=== PATIENT | female | born 1995 | race Caucasian/White ===

== ENCOUNTER 2018-02-11 23:14 | Emergency (ER) | payer OTHER ==
[2018-02-11 23:19] VITALS: BP 122/81; PULSE 87; RESP 16; TEMP 98.4
[2018-02-12] MEDS ORDERED: IBUPROFEN 600 MG TAB PO STA (00:15)
[2018-02-12] MEDS ORDERED: ACETAMINOPHEN TAB 500 MG TAB PO STA (00:15)
[2018-02-12] MEDS ORDERED: predniSONE 50 MG TAB PO STA (00:16)
--- NOTE | 2018-02-12 00:18 | ED ---
ENT HPI - General Chief complaint: ENT Stated complaint: eye problem Time Seen by Provider: 02/11/18 23:22 Source: patient, RN notes reviewed, old records reviewed Mode of arrival: ambulatory Limitations: no limitations - History of Present Illness Initial comments: This patient is a 23 year old female with L eye irritation, swelling for a week. She was started on erythromycin ointment 2 days ago by [facility] and has some relief. She state that today she has fullness in L ear and cannot hear from it. She also complains of pain and tenderness over the L ethmoid and maxillary sinus. She reports she left work. She reports that she had a bloody tear discharge from her L eye. Denies any other symptoms. - Related Data Previous Rx's Medication Instructions Recorded Amoxicillin 500 mg PO Q8H 10 Days day 05/24/15 Amoxic-Pot Clav 875-125Mg 1 tab PO Q12HR #20 tablet 02/12/18 [Augmentin 875-125] methylPREDNISolone Dose Pack 4 mg PO DIRECTED #21 package 02/12/18 [Medrol Dose Pack] Allergies Allergy/AdvReac Type Severity Reaction Status Date / Time No Known Allergies Allergy Verified 02/11/18 23:19 Review of Systems ROS Statement: Those systems with pertinent positive or pertinent negative responses have been documented in the HPI. ROS Other: All systems not noted in ROS Statement are negative. Past Medical History Past Medical History: No Reported History History of Any Multi-Drug Resistant Organisms: None Reported Past Surgical History: Section Past Psychological History: No Psychological Hx Reported Smoking Status: Never smoker Past Alcohol Use History: None Reported Past Drug Use History: None Reported General Exam - General Exam Comments Initial Comments: This is a well appearing 23 year old female, no distress. Limitations: no limitations General appearance: alert, in no apparent distress Head exam: Present: atraumatic, normocephalic, normal inspection Eye exam: Present: normal appearance, PERRL, EOMI, conjunctival injection (L eye injection), other (tender over tragus). Absent: scleral icterus, periorbital swelling ENT exam: Present: normal exam, mucous membranes moist. Absent: TM's normal bilaterally (Effusion over left TM, erythematous TM. ) Neck exam: Present: tenderness Respiratory exam: Present: normal lung sounds bilaterally. Absent: respiratory distress, wheezes, rales, rhonchi, stridor Cardiovascular Exam: Present: regular rate, normal rhythm, normal heart sounds. Absent: systolic murmur, diastolic murmur, rubs, gallop, clicks GI/Abdominal exam: Present: soft, normal bowel sounds. Absent: distended, tenderness, guarding, rebound, rigid Extremities exam: Present: normal inspection, full ROM, normal capillary refill. Absent: tenderness, pedal edema, joint swelling, calf tenderness Back exam: Present: normal inspection Neurological exam: Present: alert, oriented X3, CN II-XII intact Psychiatric exam: Present: normal affect, normal mood Course Vital Signs 02/11/18 23:16 Temperature 98.4 F Pulse Rate 87 Respiratory 16 Rate Blood Pressure 122/81 O2 Sat by Pulse 99 Oximetry Medical Decision Making - Medical Decision Making 23 year old femael with left sinus congestion, L TM effusion and otitis media. Started on augmentin and predniesone for sinusitis. Discussed PCP follow up and return parameters discussed. Discussed continuing erythromycin eye ointment over L eye. Disposition Clinical Impression: Sinusitis Disposition: HOME SELF-CARE Condition: Good Instructions: Sinusitis (ED), Earache (ED) Additional Instructions: Take medication as prescribed. Return to emergency department if any alarming signs or symptoms occur. Take Motrin Tylenol for pain. Patient should take [id number] decongestant medication. Prescriptions: Amoxic-Pot Clav 875-125Mg [Augmentin 875-125] 1 tab PO Q12HR #20 tablet methylPREDNISolone Dose Pack [Medrol Dose Pack] 4 mg PO DIRECTED #21 package Is patient prescribed a controlled substance at d/c from ED?: No Referrals: Maryan Garcia MD [Primary Care Provider] - 1-2 days Time of Disposition: 00:17
== END 2018-02-12 00:26 | disposition home or self-care (01) ==
LOC: EC 23:14
DX: J32.9 Chronic sinusitis, unspecified (principal); H65.92 Unspecified nonsuppurative otitis media, left ear
CPT/HCPCS: 99283; J7512

== ENCOUNTER 2018-07-20 23:50 | Emergency (ER) | payer OTHER ==
[2018-07-21 00:12] VITALS: BP 137/98; PULSE 94; TEMP 97.8
--- NOTE | 2018-07-21 00:58 | XR ---
EXAMINATION TYPE: XR chest 2V DATE OF EXAM: 07/21/2018 COMPARISON: NONE HISTORY: Cough TECHNIQUE: Frontal and lateral views of the chest are obtained. FINDINGS: Heart and mediastinum are normal. Lungs are clear. Diaphragm is normal. Bony thorax appear s normal. IMPRESSION: Normal chest
--- NOTE | 2018-07-21 01:23 | ED ---
General Adult HPI - General Chief complaint: Upper Respiratory Infection Stated complaint: Cough/Throat Pain/Syncope Time Seen by Provider: 07/21/18 00:13 Source: patient, RN notes reviewed Mode of arrival: ambulatory Limitations: no limitations - History of Present Illness Initial comments: 23-year-old female presents to the emergency department for a chief complaint of cough 2 days. Patient states cough is productive. Patient denies any shortness of breath or chest pain. Patient states she also has a sore throat as well as congestion. Patient does admit to smoking, denies asthma or COPD. Patient states she felt like she may have had a low-grade fever yesterday but is unsure. Patient has no other complaints at this time including shortness of breath, chest pain, abdominal pain, nausea or vomiting, headache, or visual changes. - Related Data Previous Rx's Medication Instructions Recorded Amoxicillin 500 mg PO Q8H 10 Days day 05/24/15 Amoxic-Pot Clav 875-125Mg 1 tab PO Q12HR #20 tablet 02/12/18 [Augmentin 875-125] methylPREDNISolone Dose Pack 4 mg PO DIRECTED #21 package 02/12/18 [Medrol Dose Pack] methylPREDNISolone Dose Pack 4 mg PO DIRECTED #21 package 07/21/18 [Medrol Dose Pack] Allergies Allergy/AdvReac Type Severity Reaction Status Date / Time No Known Allergies Allergy Verified 07/21/18 00:12 Review of Systems ROS Statement: Those systems with pertinent positive or pertinent negative responses have been documented in the HPI. ROS Other: All systems not noted in ROS Statement are negative. Past Medical History Past Medical History: No Reported History History of Any Multi-Drug Resistant Organisms: None Reported Past Surgical History: Section Past Psychological History: No Psychological Hx Reported Smoking Status: Current every day smoker Past Drug Use History: None Reported General Exam Limitations: no limitations General appearance: alert, in no apparent distress Head exam: Present: atraumatic, normocephalic, normal inspection Eye exam: Present: normal appearance, PERRL, EOMI. Absent: scleral icterus, conjunctival injection, periorbital swelling ENT exam: Present: normal exam, normal oropharynx (No tonsillar exudates noted bilaterally. Uvula midline. No evidence of abscess.), mucous membranes moist, TM's normal bilaterally, normal external ear exam Neck exam: Present: normal inspection, full ROM. Absent: tenderness, meningismus, lymphadenopathy Respiratory exam: Present: normal lung sounds bilaterally. Absent: respiratory distress, wheezes, rales, rhonchi, stridor Cardiovascular Exam: Present: regular rate, normal rhythm, normal heart sounds. Absent: systolic murmur, diastolic murmur, rubs, gallop, clicks GI/Abdominal exam: Present: soft, normal bowel sounds. Absent: distended, tenderness, guarding, rebound, rigid Neurological exam: Present: alert, oriented X3, CN II-XII intact Psychiatric exam: Present: normal affect, normal mood Course Vital Signs 07/21/18 00:07 Temperature 97.8 F Pulse Rate 94 Respiratory 18 Rate Blood Pressure 137/98 O2 Sat by Pulse 98 Oximetry Medical Decision Making - Medical Decision Making 23-year-old female presents to the emergency department for a chief of cough, congestion, and sore throat 2 days. Cough is productive. Patient does smoke. 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 Patient states she has not smoked in the past few days because of this. Patient denies shortness of breath or chest pain. Chest x-ray is negative for pneumonia. Influenza and strep were negative. No evidence of peritonsillar abscess. At this time patient will be given steroid dosepak and follow-up with primary care. She'll return here if she has any worsening symptoms. - Lab Data Lab Results 07/21/18 07/21/18 Range/Units 00:37 00:37 Influenza Type A RNA Not Detected (Not Detectd) Influenza Type B (PCR) Not Detected (Not Detectd) Group A Strep Rapid Negative (Negative) Disposition Clinical Impression: Cough, Pharyngitis Disposition: HOME SELF-CARE Condition: Good Instructions (If sedation given, give patient instructions): Upper Respiratory Infection (ED) Additional Instructions: Please take steroid dose pack as directed. Please refrain from smoking. Please follow-up with primary care in 1-2 days. Return immediately to the emergency department if you have any worsening symptoms. Prescriptions: methylPREDNISolone Dose Pack [Medrol Dose Pack] 4 mg PO DIRECTED #21 package Is patient prescribed a controlled substance at d/c from ED?: No Referrals: Maryan Garcia MD [Primary Care Provider] - 1-2 days Time of Disposition: 01:22
[2018-07-21 01:34] VITALS: RESP 17
== END 2018-07-21 01:30 | disposition home or self-care (01) ==
LOC: EC 23:50
DX: J02.9 Acute pharyngitis, unspecified (principal); R05 Cough; R09.89 Other specified symptoms and signs involving the circulatory and respiratory systems; Z71.6 Tobacco abuse counseling; F17.200 Nicotine dependence, unspecified, uncomplicated
CPT/HCPCS: 71046; 87081; 87430; 87502; 99283; 99406